=== PATIENT | male | born 1975 | race Caucasian/White ===

== ENCOUNTER → 2016-09-11 | Outpatient (CLI) | payer MEDICAID | LOC: OD 08:40 | PROVIDERS: ATTEND Family Medicine | DX: M25.561 Pain in right knee (principal); M25.562 Pain in left knee; M25.511 Pain in right shoulder ==

== ENCOUNTER → 2017-06-27 | Outpatient (CLI) | payer OTHER ==
--- NOTE | 2017-06-27 15:02 | RADIOLOGY REPORT (SQ) ---
EXAM DESCRIPTION: KNEE LEFT 2 VIEWS COMPLETED DATE/TIME: 06/27/2017 2:29 pm REASON FOR STUDY: R KNEE REPLACEMENT COMPARISON: None. NUMBER OF VIEWS: Two views. TECHNIQUE: AP and lateral radiographic images acquired of the left knee. LIMITATIONS: None. FINDINGS: MINERALIZATION: Normal. BONES: No acute fracture or dislocation. No worrisome bone lesions. JOINT: No effusion. SOFT TISSUES: No soft tissue swelling. No radio-opaque foreign body. OTHER: No other significant finding. IMPRESSION: No significant findings. TECHNICAL DOCUMENTATION: JOB ID: [id number] [employer]- All Rights Reserved Reading location - IP/workstation name: [email or web address]
--- NOTE | 2017-06-27 15:25 | RADIOLOGY REPORT (SQ) ---
EXAM DESCRIPTION: KNEE RIGHT 2 VIEWS COMPLETED DATE/TIME: 06/27/2017 2:29 pm REASON FOR STUDY: R KNEE REPLACEMENT COMPARISON: None. NUMBER OF VIEWS: Two views. TECHNIQUE: AP and lateral radiographic images acquired of the right knee. LIMITATIONS: None. FINDINGS: MINERALIZATION: Normal. BONES: No acute fracture or dislocation. No worrisome bone lesions. JOINT: No effusion. SOFT TISSUES: No soft tissue swelling. No radio-opaque foreign body. OTHER: No other significant finding. IMPRESSION: No significant findings. TECHNICAL DOCUMENTATION: JOB ID: [id number] [employer]- All Rights Reserved Reading location - IP/workstation name: [email or web address]
--- NOTE | 2017-06-27 15:33 | RADIOLOGY REPORT (SQ) ---
EXAM DESCRIPTION: SHOULDER RIGHT 2 OR MORE VIEWS COMPLETED DATE/TIME: 06/27/2017 2:29 pm REASON FOR STUDY: R SHOULDER PAIN COMPARISON: None. NUMBER OF VIEWS: Three views. TECHNIQUE: Internal rotation, external rotation, and Y view images acquired of the right shoulder. LIMITATIONS: None. FINDINGS: MINERALIZATION: Normal. BONES: No acute fracture or dislocation. No worrisome bone lesions. JOINTS: No dislocation. VISUALIZED LUNGS AND RIBS: No pneumothorax. No rib fracture. SOFT TISSUES: No radiopaque foreign body. OTHER: No other significant finding. IMPRESSION: NEGATIVE STUDY OF THE RIGHT SHOULDER. NO RADIOGRAPHIC EVIDENCE OF ACUTE INJURY. TECHNICAL DOCUMENTATION: JOB ID: [id number] [employer]- All Rights Reserved Reading location - IP/workstation name: [email or web address]
== END ==
LOC: RAD 13:25 → EDBD 13:25
PROVIDERS: ATTEND General Practice
DX: M25.511 Pain in right shoulder (principal); Z96.651 Presence of right artificial knee joint

== ENCOUNTER → 2017-08-19 | Outpatient (CLI) | payer MEDICAID ==
--- NOTE | 2017-08-19 13:18 | RADIOLOGY REPORT (SQ) ---
EXAM DESCRIPTION: HIP LEFT AP/LATERAL COMPLETED DATE/TIME: 08/19/2017 10:28 am REASON FOR STUDY: PAIN IN LEFT HIP M25.552 PAIN IN LEFT HIP COMPARISON: None. NUMBER OF VIEWS: Two views. TECHNIQUE: AP pelvis and additional frog-leg view of the left hip. LIMITATIONS: None. FINDINGS: MINERALIZATION: Normal. LEFT HIP: No fracture or dislocation. No worrisome bone lesions. RIGHT HIP: No fracture or dislocation. No worrisome bone lesions. PUBIS AND ISCHIUM: No fracture. PELVIS: No fracture. SACRUM: No fracture or dislocation. No worrisome bone lesions. LOWER LUMBAR SPINE: No fracture or dislocation. No worrisome bone lesions. No significant disc disea se. SOFT TISSUES: No findings. OTHER: No other significant finding. IMPRESSION: NEGATIVE STUDY OF THE LEFT HIP AND PELVIS. NO RADIOGRAPHIC EVIDENCE OF ACUTE INJURY. TECHNICAL DOCUMENTATION: JOB ID: [id number] [employer]- All Rights Reserved Reading location - IP/workstation name: [email or web address]
== END ==
LOC: OD 08:50
PROVIDERS: ATTEND Family Medicine
DX: M25.552 Pain in left hip (principal)

== ENCOUNTER → 2017-09-05 | Outpatient (CLI) | payer MEDICAID ==
--- NOTE | 2017-09-06 14:48 | EEG PRO FEE REPORT ---
EEG INTERPRETATION PATIENT NAME: ASA HUDSON ROOM#: ORDER#: [id number] DATE OF STUDY: 09/05/2017 : 1975 REFERRING MD: FAREED BEATTY M.D. DIAGNOSIS: Epilepsy History This a 42 year old man with a history of seizure onset mainly when sleeping in 2012. His last seizure was in September 2015. Current medications include Keppra. EEG Interpretation This EEG was recorded in the awake, drowsy, and brief sleep states. The awake EEG is characterized by a well organized background with a reactive posterior dominant rhythm of 10 Hz. Drowsiness is characterized by slowing of the background rhythm. Vertex waves were briefly seen in the midline head region. Sleep spindles were symmetric and synchronous. Photic stimulation resulted in a good driving response. Hyperventilation was done with poor effort and resulted in no significant changes. There are sharply contoured waveforms present in the left and right temporal regions during drowsiness, consistent with wicket spikes (which are a normal variant). There is no epileptiform activity present. EEG Impression This is a normal EEG in wake, drowsiness, and brief sleep state. There was no epileptiform activity present. INTERPRETING PHYSICIAN: LAZARUS SEAMAN M.D. /: MTEFFRANCIS TT: [id number] ID: [id number] /: [id number] TD: 1344 JOB: [id number] cc:Ezra ALEJANDRE M.D. > MTDD
== END ==
LOC: NEURO 07:55
PROVIDERS: ATTEND Pediatrics
DX: G40.309 Generalized idiopathic epilepsy and epileptic syndromes, not intractable, without status epilepticus (principal); G40.209 Localization-related (focal) (partial) symptomatic epilepsy and epileptic syndromes with complex partial seizures, not intractable, without status epilepticus; R41.3 Other amnesia
CPT/HCPCS: 95819